=== PATIENT | male | born 1980 | race Caucasian/White ===

== ENCOUNTER 2018-08-01 19:23 | Emergency (ER) | payer MEDICAID ==
[2018-08-01] MEDS: KETOROLAC 60 MG INJ IM (21:21)
[2018-08-01] MEDS: DEXAMETHASONE 10 MG/ML 1 ML INJ IM (21:21)
== END 2018-08-01 23:02 | disposition home or self-care (01) ==
LOC: FTE 19:23
DX: M54.5 Low back pain (principal); F17.210 Nicotine dependence, cigarettes, uncomplicated
CPT/HCPCS: 96372; 99284-25